=== PATIENT | female | born 1965 | race Caucasian/White ===

== ENCOUNTER 2017-06-19 13:03 | Emergency (ER) | payer MEDICARE ==
[~2017-06-19] VITALS: Ht 157.5 cm; Wt 65.0 kg
[~2017-06-19 13:03] MED LIST: ASPI-973 PO; GEMF600T3 PO; OMEP20TA24 PO
[2017-06-19 13:15] VITALS: BP 99/65; PULSE 86; RESP 16; O2SAT 99
--- NOTE | 2017-06-19 13:32 | ED.REPORT ---
HPI-Extremity Problem Upper Date of Service Jun 19, 2017 ED Provider: Ishan Espino Pt is a 51 y/o female w/ a hx of prior R elbow fracture, HTN, CAD s/p stenting, osteoporosis, presenting to the ED due to right forearm injury which occurred yesterday. The patient tripped and fell landing on her right forearm yesterday. She denies numbness/weakness. She does have a history of prior right olecranon and proximal ulnar shaft fracture which occurred on 04/04/15 for which she was taken to the operating room by orthopedist Dr. Michaels where an open reduction internal fixation of her fractures were performed without incident Nursing Notes Stated Complaint: RIGHT ARM Chief Complaint: Extremity Trauma Nursing Notes Reviewed: Yes Allergies: Coded Allergies: prednisone (Verified Allergy, Unknown, UNKNOWN "BAD REACTION", 06/19/17) gabapentin (Verified Adverse Reaction, Severe, COGNITIVELY IMPAIRED, ) Scheduled Aspirin (Aspirin) 81 Mg Tablet 81 MG PO DAILY Gemfibrozil (Gemfibrozil) 600 Mg Tablet 600 MG PO BID Omeprazole Magnesium (Prilosec Otc) 20 Mg Tablet.dr 20 MG PO AM Scheduled PRN Oxycodone (Roxicodone) 5 Mg Tablet 5-10 MG PO QID PRN PRN For Pain General Time Seen by MD: 13:31 Chief Complaint Forearm injury right Hx Obtained From: Patient Arrived By: Walk-in Onset Occurred: Yesterday Symptom Duration: Since onset Location: : Forearm right Quality: Painful Severity: Current: Moderate Severity: Maximum: Severe Exacerbated by: Range of motion Similar Sx Previous: Yes Past Medical History Past Medical History Significant for chronic low back pain, hypertriglyceridemia, Hypertension CAD s/p stenting Rectal bleeding, 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 Past Surgical History Tubal Ligation Cholecystectomy Right elbow fracture repair Cardiac stenting Smoking History Current Every Day Smoker, Heavy Tobacco Smoker Social History Drug Use: Denies drug use Other Social History: Good social support, Local resident Ambulatory Status Independent Review of Systems Musculoskeletal: Reports: Extremity pain Neurologic: Denies: Numbness, Weakness Complete sys rev & neg: except as marked. Physical Exam Initial Vital Signs Vital Signs (First) Date Time Temp Pulse Resp B/P Pulse Ox O2 Delivery O2 Flow Rate FiO2 06/19/17 13:15 36.9 86 16 99/65 99 Room Air Initial VS: Reviewed, Vital signs normal Head / Eyes: Atraumatic, Normocephalic ENT: Mucous membranes moist, Conjunctiva normal Neck: Supple, Non-tender, Full range of motion Respiratory: Breath sounds normal, Clear to auscultation, No respiratory distress Cardiovascular: Regular rate & rhythm, Heart sounds normal, Intact distal pulses Abdomen / GI: Soft, Non-tender Skin: Warm, Dry, No cyanosis Neurologic: Alert, Oriented, Nonfocal Psychiatric: Mood/affect normal, Behavior normal, Normal thought content General/Constitutional: Awake, Alert, No acute distress, Cooperative, Not toxic appearing Appearance / Presentation: Positive: Uncomfortable Upper Extremity / MS: No deformity, Neurologic intact, Vascular intact Tender over mid-right forearm Interpretation & Diagnostics X-Ray Interpretation Xray Interpretation: IMPRESSION: Acute proximal ulnar diaphyseal fracture. Dictated by: Alton Su M.D. on 06/19/2017 at 14:03 Approved by: Alton Su M.D. on 06/19/2017 at 14:05 X-Ray Ordered: Elbow right Interpretation / Wet Read by: Interpret - Radiologist Xray Interpretation: IMPRESSION: Acute ulnar fracture with minimal displacement of the distal fragment there is a radius one half the thickness of the shaft. Fractures at the junction of the proximal and middle thirds, just at the end of the remotely placed plate and screws from old ulnar fracture. Dictated by: Alton Su M.D. on 06/19/2017 at 14:02 Approved by: Alton Su M.D. on 06/19/2017 at 14:03 X-Ray Ordered: Radius ulna right Interpretation / Wet Read by: Interpret - Radiologist Xray Interpretation: IMPRESSION: No abnormality seen in the right tibia and fibula from the level of the knee to the ankle. Dictated by: Alton Su M.D. on 06/19/2017 at 14:05 Approved by: Alton Su M.D. on 06/19/2017 at 14:05 X-Ray Ordered: Tibia fibula right Interpretation / Wet Read by: Interpret - Radiologist Re-Eval/Medical Decision Re-Evaluation/Progress : Time of Eval: 14:30 Re-Evaluation/Progress Note: Pt rechecked. Informed pt of plan for discharge. Pt understands and agrees with plan for discharge. F/U instructions and RTER warnings given. All questions addressed. Counseled Regarding: Diagnosis, Need for follow-up, When/why to return to ED Discharge & Departure Impression: Primary Impression: Ulnar fracture Encounter type: initial encounter Ulna location: shaft Fracture type: closed Fracture morphology: unspecified fracture morphology Laterality: right Qualified Code: S52.201A - Unspecified fracture of shaft of right ulna, initial encounter for closed fracture Additional Impression: Fall from ground level Disposition: Home Discharge Condition All VS Reviewed: Yes Condition: Stable Additional Instructions: You have re-fractured your arm. Wear the splint and take oxycodone. Follow-up with orthopedics in the next week. Return to ER as needed for worsening symptoms. Referrals: Deepak Ordaz MD (PCP) Octvaio Michaels MD Scribe Attestation Portions of this note were transcribed by Moody Hernandez. I, Dr. Espino personally performed the history, physical exam and medical decision-making; I reviewed and confirmed the accuracy of the information in the transcribed note. copies to: Deepak Ordaz MD; Octavio Michaels MD, Timothy S DO Jun 19, 2017 13:32 MOODY HERNANDEZ Jun 19, 2017 13:37
--- NOTE | 2017-06-19 14:05 | DRSVH ---
PROCEDURE: X-RAY RIGHT FOREARM, TWO VIEWS ([id number]) INDICATIONS: fall TECHNIQUE: 2 views of the forearm were acquired. COMPARISON: None. FINDINGS: Bones: There is an acute fracture of the ulna chest at the level of the distal screw of the old plate and screws placed for previous proximal ulnar fracture. Soft tissues: No suspicious soft tissue calcifications or masses. IMPRESSION: Acute ulnar fracture with minimal displacement of the distal fragment there is a radius o ne half the thickness of the shaft. Fractures at the junction of the proximal and middle thirds, just at the end of the remotely placed plate and screws from old ulnar fracture. Dictated by: Alton Su M.D. on 06/19/2017 at 14:02 Approved by: Alton Su M.D. on 06/19/2017 at 14:03
--- NOTE | 2017-06-19 14:07 | DRSVH ---
PROCEDURE: X-RAY RIGHT ELBOW COMPLETE, MINIMUM THREE VIEWS ([id number]) INDICATIONS: fall TECHNIQUE: 3 views of the elbow were acquired. COMPARISON: None. FINDINGS: Bones: There is an acute fracture of the diaphysis of the ulna. This has occurred at the level of the distal screw of the remotely placed plate and screws for a proximal ulnar/olecranon fracture in the remote past. The old fracture is well-healed. Soft tissues: No elbow joint effusion. No suspicious soft tissue calcifications. IMPRESSION: Acute proximal ulnar diaphyseal fracture. Dictated by: Alton Su M.D. on 06/19/2017 at 14:03 Approved by: Alton Su M.D. on 06/19/2017 at 14:05
--- NOTE | 2017-06-19 14:07 | DRSVH ---
PROCEDURE: X-RAY RIGHT TIBIA/FIBULA, TWO VIEWS ([id number]) INDICATIONS: fall TECHNIQUE: 2 views of the tibia and fibula were acquired. COMPARISON: None. FINDINGS: Bones: No fractures or dislocations. No suspicious bony lesions. Soft tissues: No suspicious soft tissue calcifications or masses. IMPRESSION: No abnormality seen in the right tibia and fibula from the level of the knee to the ankle . Dictated by: Alton Su M.D. on 06/19/2017 at 14:05 Approved by: Alton Su M.D. on 06/19/2017 at 14:05
[2017-06-19] MEDS ORDERED: OXYC-474 PO (14:27)
[2017-06-19 15:08] VITALS: BP 101/60; PULSE 90; O2SAT 96
[2017-06-22] MEDS ORDERED: LISI10TA PO (14:23)
[2017-06-22] MEDS ORDERED: LABE100T4 PO (14:23)
[2017-06-22] MEDS ORDERED: HYDR-4003 PO (14:23)
[2017-06-22] MEDS ORDERED: RANI150C4 PO (14:23)
[2017-06-22] MEDS ORDERED: ROSU5TAB9 PO (14:23)
[2017-06-22] MEDS ORDERED: ASPI-973 PO (14:23)
[2017-06-22] MEDS ORDERED: TRAZ-118 PO (14:23)
[2017-06-22] MEDS ORDERED: DEXL60CA5 PO (14:23)
[2017-06-24] MEDS ORDERED: MULT-666 PO (13:49)
== END 2017-06-19 15:18 | disposition home or self-care (01) ==
LOC: SED 13:03
DX: S52.201A Unspecified fracture of shaft of right ulna, initial encounter for closed fracture (principal); W01.0XXA Fall on same level from slipping, tripping and stumbling without subsequent striking against object, initial encounter; Y93.9 Activity, unspecified; Y92.9 Unspecified place or not applicable; Y99.8 Other external cause status; I10 Essential (primary) hypertension; I25.10 Atherosclerotic heart disease of native coronary artery without angina pectoris; E78.1 Pure hyperglyceridemia; M81.0 Age-related osteoporosis without current pathological fracture; F17.200 Nicotine dependence, unspecified, uncomplicated; Z85.038 Personal history of other malignant neoplasm of large intestine; Z95.5 Presence of coronary angioplasty implant and graft; Z79.82 Long term (current) use of aspirin; Z88.8 Allergy status to other drugs, medicaments and biological substances

== ENCOUNTER → 2017-06-24 | Day surgery (SDC) | payer MEDICARE ==
[~2017-06-24] VITALS: Ht 157.5 cm; Wt 62.6 kg
[2017-06-24] VITALS (10 sets, daily range): BP systolic 111–132; BP diastolic 55–79; PULSE 79–97; RESP 10–18; O2SAT 93–98
[~2017-06-24] MED LIST changes: +Bupivacaine-MPF 0.5% 30 mL Inj INFILTRATE ONE; +CeFAZolin 2 Gm/50 mL D5W Duplex Bag IV ONE; +CeFAZolin Inj 2 GM in IV Premix 1 EACH IV ONE; +DEXL60CA5 PO; +Dexamethasone 4 mg/mL Inj IVPUSH PRN; +Dexamethasone 4 mg/mL Inj ONE; +EPHEDrine Sulfate 50 mg/mL Inj IVPUSH PRN; +Esmolol 10,000 mCg/mL 10 mL Inj ONE; -GEMF600T3 PO; +Glycopyrrolate 0.2 MG/ML 1mL Inj ONE; +HYDR-4003 PO; +HYDROmorphone 1 mg/mL Inj IVPUSH PRN; +HYDROmorphone 1 mg/mL Inj ONE; +Ketamine 10 mg/mL 20 mL Inj ONE; +LABE100T4 PO; +LISI10TA PO; +Lactated Ringer's 1,000 ML IV SCH; +Lactated Ringer's 500 ML IV PRN; +MULT-666 PO; +MetoCLOpramide 5 mg/mL 2 mL Inj IVPUSH PRN; -OMEP20TA24 PO; +Ondansetron 2 mg/mL 2 mL Inj IVPUSH PRN; +Ondansetron 2 mg/mL 2 mL Inj ONE; +Phenylephrine 10,000 mCg/mL Inj IVPUSH PRN; +Propofol 10,000 mCg/mL 20 mL Inj ONE; +RANI150C4 PO; +ROSU5TAB9 PO; +Succinylcholine Chloride 20 mg/mL 5 mL Inj ONE; +TRAZ-118 PO; +fentaNYL-PF 50 mCg/mL 2 mL Inj IVPUSH PRN; +fentaNYL-PF 50 mCg/mL 2 mL Inj ONE; +oxyCODONE-Acetamin 5-325 mg Tablet PO PRN
[2017-06-24] MEDS: Lactated Ringer's 1,000 ML IV SCH ×2 (13:46→16:53)
--- NOTE | 2017-06-24 15:26 | PCM.HPANE ---
Patient Data Date of Service: Jun 24, 2017 Surgeon Admitting Provider: Attending Provider:Octavio Michaels MD Primary Care Physician:Maryana Ramírez DO Other Provider:Foreign Caballero Anesthesia Reason for Visit Right Ulnar Shaft Fracture, Healed Olecranon Fract Ht/WT & BMI Height (Feet): 5 Height (Inches): 2 Weight (Kilograms): 62.6 Body Mass Index 25.00 Allergies Coded Allergies: atorvastatin (Verified Allergy, Unknown, Rash,Itching,, 06/24/17) Past Anesthesia History Anesthesia History: Denies:: Abnormal Airway, Anesthesia Reactions, Difficult Intubation, Fam Anesthesia Reaction, Fam Malignant Hypertherm, Malignant Hyperthermia Diabetes History Hx Diabetes?: No MRSA MRSA: No Medications Blood Thinner: Aspirin Hypertension Medication: Yes Home Meds Incl Beta Kayley: Yes Date Beta Kayley Taken: Jun 23, 2017 Time Beta Kayley Taken: 1830 Reported Medications Multivitamin (Once Daily)1 Each Tablet1 Each PO 06/24/17 Trazodone 100 Mg [id number] Mg PO HS Ref 0 06/22/17 Rosuvastatin Calcium 5 Mg Tablet5 Mg PO DAILY 06/22/17 Ranitidine 150 Mg Ksgnsya176 Mg PO BID Ref 0 06/22/17 Lisinopril 10 Mg Kgqxyq70 Mg PO DAILY 30 Days Ref 0 06/22/17 Labetalol 100 Mg Alovrs774 Mg PO DAILY 06/22/17 Hydrocodone-Acetaminophen 5-325 mg 1 Each Tablet1 Tablet PO Q6H PRN For Pain Ref 0 06/22/17 Dexlansoprazole ER (Dexilant)60 Mg Mpfphqy46 Mg PO DAILY 30 Days Ref 0 06/22/17 Aspirin 81 Mg Hksdju18 Mg PO DAILY Ref 0 06/22/17 Discontinued Reported Medications Gemfibrozil 600 Mg Rfjysc886 Mg PO BID #60 TABLET 07/15/15 Aspirin 81 Mg Lqgguv76 Mg PO DAILY Ref 0 07/15/15 Omeprazole Magnesium (Prilosec Otc)20 Mg Tablet.dr20 Mg PO AM #1 PKG Ref 0 04/04/15 Discontinued Scripts Oxycodone (Roxicodone)5 Mg Tablet5-10 Mg PO QID PRN For Pain #16 TABLET Ref 0 Prov:Ishan Espino S DO 06/19/17 History History of ENT Problems?: No HEENT History: Denies:: Abnormal Airway Difficult Intubation Hearing Problem Denture Type: None Teeth Condition: Within Normal Limits Hx of Heart Problems?: Yes Cardiovascular History: Positive for:: Hypertension Irregular Heartbeat (palpatations once in awhile) Denies:: Cardiac Surgery Chest Pain Congestive Heart Failure Edema Heart Murmur Pacemaker Thrombophlebitis Hx of Respiratory Problem?: Yes Respiratory History: Positive for:: Cough (dry, in the morning) Denies:: Asthma COPD Chest Surgery Dyspnea Emphysema Hemoptysis Pneumonia Tuberculosis Use of C-PAP Machine Hx Neurologic Problems?: No Neurological History: Denies:: Alzheimer's Disease CVA Dementia Dizziness Headaches Multiple Sclerosis Parkinson's Disease Seizures Hx of GI Problems?: Yes Gastrointestinal History: Positive for:: Heartburn (controlled on medications) Hx of Problems?: No Genitourinary History: Denies:: HX of Hemodialysis Kidney Stones Urinary Tract Infection HX of Peritoneal Dialysis: No Female Hx: Denies:: Currently (hx of tubal) Endometriosis Pelvic Inflammatory Problems with Breasts? Skin History: Denies:: History Skin Disorders? Pressure Ulcers Hx Musculoskeletal Problems?: Yes Musculoskeletal History: Positive for:: Back Injury (several yrs back 2000 , surgery [id number]) Musculoskeletal Trauma (right ulnar shaft fx current admission problem, prior hx fx 2014) Denies:: Joint Replacement Hx of Psycho/Social Problems?: No Psycho Social History: Denies:: Anxiety Bipolar Disorder Hx Depression Suicide Attempt Hx Surgeries?: Yes (cirilo, fx of right leg, back surgery, right arm fx) Hx Any Other Health Problems?: Yes Other History: Positive for:: Hospitalization (back injury related) Denies:: Cancer Endocrine Disease Thyroid Disease History Blood Transfusions: Denies:: Blood Transfuse Reaction Blood Transfusions Hx Diabetes: No Hx Alcohol Use: Yes (few beers nightly )Hx Substance Use: No Smoking Status: Current Every Day Smoker Heavy Tobacco Smoker Have You Smoked inLast 12 mo: Yes Stop/Bang P-Blood Pressure: treated: Yes B- Body Mass Index > 35 kg/m2: No A- Age over 50: Yes N- Neck Large Circumference: No G- Gender Male: No FRANCISCO Risk Assessment: Low Risk, <3 Yes Risk Assessment Category Category 1A: Patient has history of documented sleep apnea, and HAS NOT received any narcotic, sedative or anesthesia administration during this stay. Category 1B: Patient has history of documented sleep apnea, and HAS received any narcotic , sedative or anesthesia administration during this stay Category 2: Patient has SUSPECTED Obstructive Sleep Apnea, and HAS received any narcotic , sedative or anesthesia administration during this stay. Category 3: Patient has SUSPECTED Obstructive Sleep Apnea and HAS NOT received narcotic, sedative or anesthesia administration during this stay. Category 4: Outpatient in Procedural Areas with known sleep apnea or who screen positive for High Risk via the STOP/BANG questionnaire. Exam Exam Vital Signs Vital Signs Date Time Temp Pulse Resp B/P Pulse Ox O2 Delivery O2 Flow Rate FiO2 06/24/17 13:27 36.1 79 111/61 95 Room Air General Appearance: Alert, Oriented X3, Cooperative, Mild Distress (arm painful ) HEENT/AIRWAY: MP 1, Neck Movement (FROM, tmd 3 fb) Lungs: Clear to Auscultation, Normal Air Movement Heart: Exam Unremarkable, Regular Rate/Rhythm, No Murmurs/Rubs/Gallops Meds/Labs/Diagnostics Admission Meds Current Medications Lactated Ringer's (Lr) 1,000 ml @ 120 mls/hr Q8H20M IV Last administered on t 13:46; Start 06/24/17 at 05:00; Stop 06/24/17 at 13:19; Status DC Plan Impression Patient chart reviewed, patient interviewed and anesthestic plan with risks, benefits, and alternatives discussed, and informed consent obtained. NPO per Anesth. Guidelines: Yes ASA Physical Status: ASA2 Mod Systemic Disease Anesthetic Plan: GA Bene/Risks/Altern/Consents: Yes HP Complete Prior to Induction: Yes Travis Chavez MD Jun 24, 2017 15:26
--- NOTE | 2017-06-24 21:20 | DRSVH ---
PROCEDURE: X-RAY RIGHT ELBOW, TWO VIEWS ([id number]) INDICATIONS: ORIF RIGHT ELBOW TECHNIQUE: 3 views of the elbow were acquired. COMPARISON: None. FINDINGS: Delayed phase views show a plate along the dorsal aspect of the ulna. The plate is centered over the recent acute fracture that shows 3 screws in the proximal aspect of the ulna and 3 screws into the di stal fragment of the ulna with anatomic positioning of the fragments. IMPRESSION: Removal of old hardware and placement of a new plate and screws along the fracture site w ith anatomic reduction Dictated by: Alton Su M.D. on 06/24/2017 at 21:17 Approved by: Alton Su M.D. on 06/24/2017 at 21:18
--- NOTE | 2017-06-24 21:40 | DRSVH ---
PROCEDURE: X-RAY RIGHT FOREARM, TWO VIEWS ([id number]) INDICATIONS: post op TECHNIQUE: 2 views of the forearm were acquired. COMPARISON: None. FINDINGS: Bones: A transverse fracture of the ulnar diaphysis seen recently at the distal end of a old fixation device shows the removal of hardware of the ulna. There is No plate along the dorsal aspect of the ulna centered at the fracture with 3 screws proximal 3 screws distally and the ulnar fracture reduced anatomically. Soft tissues: No suspicious soft tissue calcifications or masses. IMPRESSION: Anatomic reduction a recent ulnar fracture with plate and screws following removal of old hardware * Dictated by: Alton Su M.D. on 06/24/2017 at 21:37 Approved by: Alton Su M.D. on 06/24/2017 at 21:38
--- NOTE | 2017-06-24 23:17 | PCM.ANEP1 ---
Post Anesthesia PACU Phase 1 Assessment Date of Service: Jun 24, 2017 Vital Signs Vital Signs Date Time Temp Pulse Resp B/P Pulse Ox O2 Delivery O2 Flow Rate FiO2 06/24/17 21:37 89 16 130/55 94 Room Air 06/24/17 21:30 89 18 126/77 98 Room Air 06/24/17 21:25 36.8 86 16 118/75 98 Room Air 06/24/17 21:20 89 14 96 Room Air 06/24/17 21:15 91 17 128/62 95 Room Air 06/24/17 21:10 95 16 132/66 95 Room Air 06/24/17 21:05 97 16 132/71 94 Room Air 06/24/17 21:00 97 13 124/79 95 Room Air 06/24/17 20:55 37.0 96 10 126/72 95 Room Air Anesthetic Administered: GA Level of Alertness: Awake, talking QUISPE's with Equal Strength: Yes Pain: No Nausea or Vomiting: No CV Function & Hydration Stable: Yes Airway Device: none Oxygen Delivery: Room Air Lungs: Clear to Auscultation, Normal Air Movement Dermatome Level: Full Sensation PACU Phase 2 Assessment Complications: No Follow up Care: No Patient Instructions Provided: N/A Travis Chavez MD Jun 24, 2017 23:17
--- NOTE | 2017-06-25 08:27 | OP ---
[address] [address] OPERATIVE REPORT PATIENT: JACY CALZADA : 1965 MR#: [id number] ADMIT: 06/24/2017 JOB ID: [id number] DATE OF SURGERY: 06/24/2017 PREOPERATIVE DIAGNOSIS(ES): 1. Displaced right ulnar shaft fracture. ICD 10 code S5 2.221A. 2. Healed right olecranon previously comminuted fracture. ICD 10 code S5 2.201S. POSTOPERATIVE DIAGNOSIS(ES): 1. Displaced right ulnar shaft fracture. ICD 10 code S5 2.221A. 2. Healed right olecranon previously comminuted fracture. ICD 10 code S5 2.201S. PROCEDURE: 1. Removal of buried plate and screws from right olecranon fracture. CPT code 34720. 2. Open reduction internal fixation right ulnar shaft fracture. CPT code 72203. SURGEON: Dr. Octavio Michaels ASSISTING: Iker Dorantes PA-C. Iker Dorantes was an integral portion of the procedure helping to obtain reduction and alignment of the fracture. DESCRIPTION OF PROCEDURE: Under adequate general anesthesia, the patient was placed in the left lateral decubitus position. The arm was placed over a bump and onto the arm board. The left arm was prepped and draped in a sterile fashion and a sterile tourniquet was utilized. After appropriate time-out was called, the arm was elevated, exsanguinated, tourniquet inflated to 250 mmHg. I utilized the patient's old surgical incision over the tip of the olecranon extending it distally down the ulnar shaft. Care was taken to protect surrounding neurovascular structures. The interval between the extensor carpi ulnaris and flexor carpi ulnaris was identified. Soft tissues over the plate and any fibrous tissue was incised. Each of the screw holes were identified and cleaned of any debris and the screws were all removed. The patient did have a fracture below the most distal screw hole. It was felt that it was in the patient's best interest to remove the old plate and screws since her olecranon fracture had healed rather than try to do a 90/[address] a smaller plate perpendicular to the other plate. Once the old plate was removed, each of the screw holes were cleaned. Utilizing an elevator, any fibrous tissue was removed from around the screw holes and fibrous tissue was removed from the volar aspect of the ulnar shaft. The wound was thoroughly irrigated with saline. I then reduced the ulnar shaft fracture and held it with a clamp and subsequently a temporary K-wire. An eight hole 3.5 mm limited contact locking plate was then transfixed to the ulnar shaft. Two of the screw holes were left open around the fracture site. I first placed a non locking 3.5 mm screw proximal to the fracture. I then drilled and filled it with a nonlocking screw distal to the fracture. Two additional nonlocking screws were placed proximal to the fracture drilling and filling with appropriate and one additional nonlocking and one locking screw were drilled and filled distally. Image intensification confirmed good position of the hardware on AP and lateral views. Tourniquet was released. Minimal hemostasis required. Soft tissues were closed over the plate with 2-0 Vicryl. The soft tissue over the proximal portion of the olecranon where the previous plate was removed was also closed with some interrupted sutures of 2-0 Vicryl. The subcutaneous layers were closed with interrupted sutures of 3-0 Monocryl. 0.5% plain Marcaine was placed deep in the wound. The skin was reapproximated with running subcuticular suture of 3-0 Monocryl. The ends of the Monocryl suture were brought out through the skin. Mastisol and Steri-Strips were applied. Xeroform dry sterile dressings were applied. The patient was placed in a well-padded posterior fiberglass splint. She was taken to the recovery room in stable condition. Sponge and needle count correct. No complications. No specimen to pathology. PLAN: The patient will be seen in the office in two weeks. Monocryl sutures may be clipped flush with the skin at that time. The patient was discharged home on Percocet 10/325 and Keflex as well as Vistaril. The patient will probably require at least short arm cast immobilization initially to allow some of those screw holes to fill in for additional protection, but should be able to begin range of motion to the elbow. She should avoid twisting on the elbow but could do flexion-extension of the elbow.
== END | disposition home or self-care (01) ==
LOC: SAS 13:07
PROVIDERS: ATTEND Orthopaedic Surgery
DX: S52.221A Displaced transverse fracture of shaft of right ulna, initial encounter for closed fracture (principal); T85.848A Pain due to other internal prosthetic devices, implants and grafts, initial encounter; I10 Essential (primary) hypertension; E78.2 Mixed hyperlipidemia; M51.36 Other intervertebral disc degeneration, lumbar region; K21.9 Gastro-esophageal reflux disease without esophagitis; K55.1 Chronic vascular disorders of intestine; F17.210 Nicotine dependence, cigarettes, uncomplicated; W03.XXXA Other fall on same level due to collision with another person, initial encounter; Y93.89 Activity, other specified; Y92.9 Unspecified place or not applicable; Y99.8 Other external cause status; Z95.5 Presence of coronary angioplasty implant and graft; Z79.82 Long term (current) use of aspirin
CPT/HCPCS: 20680; 25545; 73070; 73090; 76001; C1713; J0330; J0690; J1100; J1170; J2250; J2270; J2405; J2704; J3010; J7120